=== PATIENT | male | born 1975 | race Caucasian/White ===

== ENCOUNTER 2016-09-06 14:29 | Emergency (ER) | payer MEDICARE ==
[2016-09-06 15:27] LABS: BASOPHILS 0.6 % (0-2); EOSINOPHILS 0.6 % (0-7); HEMOGLOBIN 14.1 g/dL (13.5-17.5); IMMATURE GRANULOCYTES 0.1 % (0-5); LYMPHOCYTES 20.9 % (15-50); MCH 28.8 pg (26.0-34.0); MCHC 34.4 g/dL (31.0-37.0); MCV 83.8 fL (80.0-100.0); MEAN PLATELET VOLUME 9.8 fL (7.4-10.4); MONOCYTES 6.9 % (2-11); NEUTROPHILS 70.9 % (40-80); PLATELET COUNT 245 10x3/uL (130-400); RBC 4.89 10x6/uL (4.20-6.10); RDW 12.6 % (11.5-14.5)
[2016-09-06 15:42] LABS: ALBUMIN 3.4 g/dL (3.4-5.0); ALKALINE PHOSPHATASE 65 U/L (46-116); ALT (SGPT) 32 U/L (10-68); BILIRUBIN - TOTAL 0.51 mg/dL (0.2-1.3); CALC OSMOLALITY 275 mosm/kg (275-300); CALCIUM 8.7 mg/dL (8.5-10.1); CARBON DIOXIDE 25.6 mmol/L (21.0-32.0); CHLORIDE - SERUM 104 mmol/L (98-107); CREATININE - SERUM 1.1 mg/dL (0.6-1.3); GLUCOSE 112 mg/dL (74-106); POTASSIUM - SERUM 4.2 mmol/L (3.5-5.1); PROTEIN - SERUM 6.5 g/dL (6.4-8.2); SODIUM 137 mmol/L (136-145); UREA NITROGEN 15 mg/dL (7-18); eGFR NON AFRICAN AMERICAN 79 mL/min (90-120)
[2016-09-06 15:51] LABS: CKMB 0.8 U/L (0.0-3.6); CREATINE KINASE 147 UL (21-232); PRO BNP 29 pg/mL (0-125)
[2016-09-06 15:59] LABS: TROPONIN-I < 0.017 ng/mL (0.000-0.060)
== END 2016-09-06 17:30 | disposition home or self-care (01) ==
LOC: D.ER 14:29
PROVIDERS: Emergency Medicine
DX: R07.9 Chest pain, unspecified (principal); R73.03 Prediabetes; C76.0 Malignant neoplasm of head, face and neck; I49.3 Ventricular premature depolarization

== ENCOUNTER → 2016-09-07 | Emergency (ER) | payer MEDICARE ==
[2016-09-07 13:09] LABS: BASOPHILS 0.5 % (0-2); EOSINOPHILS 0.1 % (0-7); HEMATOCRIT 43.7 % (42.0-54.0); HEMOGLOBIN 14.8 g/dL (13.5-17.5); IMMATURE GRANULOCYTES 0.1 % (0-5); LYMPHOCYTES 22.6 % (15-50); MCH 29.1 pg (26.0-34.0); MCHC 33.9 g/dL (31.0-37.0); MEAN PLATELET VOLUME 9.6 fL (7.4-10.4); MONOCYTES 8.7 % (2-11); PLATELET COUNT 249 10x3/uL (130-400); RBC 5.09 10x6/uL (4.20-6.10); RDW 12.8 % (11.5-14.5); WBC 7.5 10x3/uL (4.8-10.8)
[2016-09-07 13:11] LABS: MCV 85.9 fL (80.0-100.0)
[2016-09-07 13:54] LABS: ALBUMIN 3.2 g/dL (3.4-5.0); ALKALINE PHOSPHATASE 65 U/L (46-116); ALT (SGPT) 24 U/L (10-68); BILIRUBIN - TOTAL 0.44 mg/dL (0.2-1.3); CALC OSMOLALITY 273 mosm/kg (275-300); CALCIUM 8.7 mg/dL (8.5-10.1); CARBON DIOXIDE 22.4 mmol/L (21.0-32.0); CHLORIDE - SERUM 106 mmol/L (98-107); CKMB 0.5 U/L (0.0-3.6); CREATINE KINASE 140 UL (21-232); CREATININE - SERUM 1.1 mg/dL (0.6-1.3); GLUCOSE 105 mg/dL (74-106); POTASSIUM - SERUM 4.4 mmol/L (3.5-5.1); SODIUM 136 mmol/L (136-145); UREA NITROGEN 17 mg/dL (7-18); eGFR NON AFRICAN AMERICAN 79 mL/min (90-120)
[2016-09-07 13:55] LABS: TROPONIN-I < 0.017 ng/mL (0.000-0.060)
== END ==
LOC: D.ER 12:28
PROVIDERS: Family Medicine
DX: R07.89 Other chest pain (principal); I51.7 Cardiomegaly; C76.0 Malignant neoplasm of head, face and neck; I49.3 Ventricular premature depolarization

== ENCOUNTER 2016-09-14 15:41 | Emergency (ER) | payer MEDICARE | END 2016-09-14 18:15 | disposition home or self-care (01) | LOC: D.ER 15:41 | DX: M79.1 Myalgia (principal); N50.812 Left testicular pain; N50.811 Right testicular pain ==

== ENCOUNTER 2016-10-05 20:44 | Emergency (ER) | payer MEDICARE ==
[2016-10-05 22:31] LABS: APTT 29.6 SECONDS (22.8-39.4); INR 1.13 (0.85-1.17); PROTIME 14.4 SECONDS (11.6-15.0)
[2016-10-05 22:44] LABS: CREATINE KINASE 47 UL (21-232); TROPONIN-I < 0.017 ng/mL (0.000-0.060)
== END 2016-10-05 23:18 | disposition home or self-care (01) ==
LOC: D.ER 20:44
PROVIDERS: Physician Assistant Medical
DX: S30.1XXA Contusion of abdominal wall, initial encounter (principal); W19.XXXA Unspecified fall, initial encounter; Y93.89 Activity, other specified; Y92.89 Other specified places as the place of occurrence of the external cause; Z85.828 Personal history of other malignant neoplasm of skin; I44.0 Atrioventricular block, first degree; M54.9 Dorsalgia, unspecified; M79.1 Myalgia

== ENCOUNTER 2016-10-18 17:28 | Emergency (ER) | payer MEDICARE ==
[2016-10-18 18:37] LABS: BASOPHILS 0.3 % (0-2); EOSINOPHILS 0.7 % (0-7); HEMATOCRIT 39.7 % (42.0-54.0); HEMOGLOBIN 13.8 g/dL (13.5-17.5); IMMATURE GRANULOCYTES 0.2 % (0-5); LYMPHOCYTES 28.4 % (15-50); MCH 29.1 pg (26.0-34.0); MCHC 34.8 g/dL (31.0-37.0); MCV 83.6 fL (80.0-100.0); MEAN PLATELET VOLUME 9.6 fL (7.4-10.4); NEUTROPHILS 60.4 % (40-80); PLATELET COUNT 186 10x3/uL (130-400); RBC 4.75 10x6/uL (4.20-6.10); RDW 12.9 % (11.5-14.5); WBC 6.1 10x3/uL (4.8-10.8)
[2016-10-18 18:50] LABS: ALBUMIN 3.5 g/dL (3.4-5.0); ALKALINE PHOSPHATASE 49 U/L (46-116); ALT (SGPT) 46 U/L (10-68); CALC OSMOLALITY 274 mosm/kg (275-300); CALCIUM 8.6 mg/dL (8.5-10.1); CARBON DIOXIDE 27.1 mmol/L (21.0-32.0); CHLORIDE - SERUM 104 mmol/L (98-107); CREATININE - SERUM 1.2 mg/dL (0.6-1.3); GLUCOSE 104 mg/dL (74-106); POTASSIUM - SERUM 3.4 mmol/L (3.5-5.1); PROTEIN - SERUM 6.8 g/dL (6.4-8.2); SODIUM 138 mmol/L (136-145); UREA NITROGEN 9 mg/dL (7-18); eGFR NON AFRICAN AMERICAN 71 mL/min (90-120)
[2016-10-18 19:06] LABS: CHOL - HDL RATIO 4.1 ratio (2.3-4.9); CHOLESTEROL, TOTAL 148 mg/dL (0-200); CREATINE KINASE 54 UL (21-232); HDL CHOLESTEROL 36 mg/dL (32-96); LDL CHOLESTEROL 93 mg/dL (0-100); LDL-HDL RATIO 2.6 ratio (1.5-3.5); TRIGLYCERIDE 99 mg/dL (30-200)
[2016-10-18 19:07] LABS: TROPONIN-I < 0.017 ng/mL (0.000-0.060)
== END 2016-10-18 21:01 | disposition home or self-care (01) ==
LOC: D.ER 17:28
PROVIDERS: Emergency Medicine
DX: R07.89 Other chest pain (principal); I44.0 Atrioventricular block, first degree; R05 Cough

== ENCOUNTER 2016-10-22 20:07 | Emergency (ER) | payer MEDICARE | END 2016-10-22 22:57 | disposition home or self-care (01) | LOC: D.ER 20:07 | DX: M54.12 Radiculopathy, cervical region (principal) ==

== ENCOUNTER 2016-10-25 16:28 | Emergency (ER) | payer MEDICARE ==
[2016-10-25 17:19] LABS: BASOPHILS 0.4 % (0-2); EOSINOPHILS 0.4 % (0-7); HEMOGLOBIN 14.5 g/dL (13.5-17.5); IMMATURE GRANULOCYTES 0.1 % (0-5); LYMPHOCYTES 30.4 % (15-50); MCH 28.9 pg (26.0-34.0); MCHC 34.5 g/dL (31.0-37.0); MCV 83.8 fL (80.0-100.0); MEAN PLATELET VOLUME 10.1 fL (7.4-10.4); MONOCYTES 9.9 % (2-11); NEUTROPHILS 58.8 % (40-80); PLATELET COUNT 217 10x3/uL (130-400); RBC 5.01 10x6/uL (4.20-6.10); RDW 13.1 % (11.5-14.5); WBC 6.9 10x3/uL (4.8-10.8)
[2016-10-25 17:37] LABS: ALBUMIN 3.9 g/dL (3.4-5.0); ALKALINE PHOSPHATASE 52 U/L (46-116); ALT (SGPT) 67 U/L (10-68); BILIRUBIN - TOTAL 0.59 mg/dL (0.2-1.3); CALC OSMOLALITY 271 mosm/kg (275-300); CALCIUM 8.9 mg/dL (8.5-10.1); CARBON DIOXIDE 25.8 mmol/L (21.0-32.0); CHLORIDE - SERUM 102 mmol/L (98-107); CREATININE - SERUM 1.2 mg/dL (0.6-1.3); GLUCOSE 90 mg/dL (74-106); POTASSIUM - SERUM 3.7 mmol/L (3.5-5.1); PROTEIN - SERUM 6.8 g/dL (6.4-8.2); SODIUM 136 mmol/L (136-145); UREA NITROGEN 13 mg/dL (7-18); eGFR NON AFRICAN AMERICAN 71 mL/min (90-120)
[2016-10-25 17:48] LABS: CHOL - HDL RATIO 3.8 ratio (2.3-4.9); CHOLESTEROL, TOTAL 133 mg/dL (0-200); CREATINE KINASE 50 UL (21-232); HDL CHOLESTEROL 35 mg/dL (32-96); LDL CHOLESTEROL 82 mg/dL (0-100); LDL-HDL RATIO 2.3 ratio (1.5-3.5); TRIGLYCERIDE 81 mg/dL (30-200); TROPONIN-I < 0.017 ng/mL (0.000-0.060)
== END 2016-10-25 18:45 | disposition home or self-care (01) ==
LOC: D.ER 16:28
PROVIDERS: Emergency Medicine
DX: R07.89 Other chest pain (principal); M54.12 Radiculopathy, cervical region; I49.3 Ventricular premature depolarization; M54.2 Cervicalgia; M79.602 Pain in left arm; R20.0 Anesthesia of skin

== ENCOUNTER 2016-11-07 16:33 | Emergency (ER) | payer MEDICARE ==
[2016-11-07 20:40] LABS: APPEARANCE CLEAR (CLEAR); BILIRUBIN NEGATIVE (NEGATIVE); COLOR YELLOW (YELLOW); GLUCOSE NEGATIVE (NEGATIVE); KETONE NEGATIVE (NEGATIVE); LEUKOCYTE ESTERASE NEGATIVE (NEGATIVE); NITRITE NEGATIVE (NEGATIVE); PROTEIN NEGATIVE (NEGATIVE); SPECIFIC GRAVITY 1.015 (1.005-1.020); UROBILINOGEN NORMAL (NORMAL)
== END 2016-11-07 21:20 | disposition home or self-care (01) ==
LOC: D.ER 16:33
PROVIDERS: Emergency Medicine
DX: N45.1 Epididymitis (principal)

== ENCOUNTER 2016-11-14 09:27 | Emergency (ER) | payer MEDICARE ==
[2016-11-14 10:47] LABS: BASOPHILS 0.6 % (0-2); EOSINOPHILS 0.8 % (0-7); HEMOGLOBIN 14.1 g/dL (13.5-17.5); LYMPHOCYTES 26.6 % (15-50); MCH 29.6 pg (26.0-34.0); MCHC 34.4 g/dL (31.0-37.0); MEAN PLATELET VOLUME 9.4 fL (7.4-10.4); MONOCYTES 9.5 % (2-11); NEUTROPHILS 62.5 % (40-80); PLATELET COUNT 176 10x3/uL (130-400); RBC 4.77 10x6/uL (4.20-6.10); RDW 13.1 % (11.5-14.5); WBC 5.3 10x3/uL (4.8-10.8)
[2016-11-14 11:06] LABS: INR 1.05 (0.85-1.17); PROTIME 13.5 SECONDS (11.6-15.0)
[2016-11-14 11:11] LABS: ALBUMIN 3.5 g/dL (3.4-5.0); ALKALINE PHOSPHATASE 47 U/L (46-116); ALT (SGPT) 35 U/L (10-68); CALC OSMOLALITY 281 mosm/kg (275-300); CALCIUM 9.1 mg/dL (8.5-10.1); CARBON DIOXIDE 29.5 mmol/L (21.0-32.0); CHLORIDE - SERUM 107 mmol/L (98-107); GLUCOSE 92 mg/dL (74-106); POTASSIUM - SERUM 4.2 mmol/L (3.5-5.1); PROTEIN - SERUM 6.4 g/dL (6.4-8.2); SODIUM 141 mmol/L (136-145); UREA NITROGEN 15 mg/dL (7-18); eGFR NON AFRICAN AMERICAN 87 mL/min (90-120)
[2016-11-14 11:23] LABS: CREATINE KINASE 49 UL (21-232); PRO BNP 48 pg/mL (0-125); TROPONIN-I < 0.017 ng/mL (0.000-0.060)
== END 2016-11-14 11:47 | disposition home or self-care (01) ==
LOC: D.ER 09:27
PROVIDERS: Nurse Practitioner Family
DX: R42 Dizziness and giddiness (principal); E11.9 Type 2 diabetes mellitus without complications; I44.0 Atrioventricular block, first degree

== ENCOUNTER 2016-11-29 17:52 | Emergency (ER) | payer MEDICARE | END 2016-11-29 21:30 | disposition home or self-care (01) | LOC: D.ER 17:52 | DX: K29.00 Acute gastritis without bleeding (principal); E66.9 Obesity, unspecified; K21.9 Gastro-esophageal reflux disease without esophagitis ==

== ENCOUNTER 2017-01-06 18:23 | Emergency (ER) | payer MEDICARE | END 2017-01-06 22:41 | disposition left against medical advice (07) | LOC: D.ER 18:23 | DX: J02.9 Acute pharyngitis, unspecified (principal) ==

== ENCOUNTER 2017-01-18 16:14 | Emergency (ER) | payer MEDICARE ==
[2017-01-18 16:44] LABS: APPEARANCE CLEAR (CLEAR); BILIRUBIN NEGATIVE (NEGATIVE); COLOR YELLOW (YELLOW); GLUCOSE NEGATIVE (NEGATIVE); KETONE NEGATIVE (NEGATIVE); NITRITE NEGATIVE (NEGATIVE); PROTEIN NEGATIVE (NEGATIVE); SPECIFIC GRAVITY 1.015 (1.005-1.020); UROBILINOGEN NORMAL (NORMAL)
== END 2017-01-18 17:10 | disposition home or self-care (01) ==
LOC: D.ER 16:14
PROVIDERS: Emergency Medicine
DX: M54.5 Low back pain (principal); E11.9 Type 2 diabetes mellitus without complications; K21.9 Gastro-esophageal reflux disease without esophagitis; Z85.828 Personal history of other malignant neoplasm of skin

== ENCOUNTER 2017-02-07 23:38 | Emergency (ER) | payer MEDICARE | END 2017-02-08 01:00 | disposition home or self-care (01) | LOC: D.ER 23:38 | DX: I80.299 Phlebitis and thrombophlebitis of other deep vessels of unspecified lower extremity (principal); K21.9 Gastro-esophageal reflux disease without esophagitis; Z85.828 Personal history of other malignant neoplasm of skin ==

== ENCOUNTER 2017-09-08 11:21 | Emergency (ER) | payer MEDICARE ==
[~2017-09-08] VITALS: Ht 193 cm; Wt 163.6 kg
[2017-09-08 11:30] VITALS: Ht 193 cm; Wt 163.6 kg
[2017-09-08] MEDS ORDERED: ZESTRIL20 MG PO (11:33)
[2017-09-08] MEDS ORDERED: PROTONIX40 MG PO (11:33)
[2017-09-08] MEDS ORDERED: BUSPAR10 MG PO (11:33)
[2017-09-08] MEDS ORDERED: ELIQUIS5 MG PO (11:33)
[2017-09-08] MEDS ORDERED: FUROSEMIDE20 MG PO (11:34)
[2017-09-08] MEDS ORDERED: VIBRAMYCIN 100100 MG PO ×2 (11:34→14:27)
[2017-09-08] MEDS ORDERED: NITROSTAT0.4 MG SL (11:40)
[2017-09-08] MEDS ORDERED: GLUCOPHAGE1000 MG PO (11:40)
[2017-09-08 13:19] LABS: BASOPHILS 0.2 % (0-2); EOSINOPHILS 0.9 % (0-7); HEMATOCRIT 39.6 % (42.0-54.0); HEMOGLOBIN 13.4 g/dL (13.5-17.5); IMMATURE GRANULOCYTES 0.2 % (0-5); MCH 28.9 pg (26.0-34.0); MCHC 33.8 g/dL (31.0-37.0); MCV 85.3 fL (80.0-100.0); MEAN PLATELET VOLUME 9.5 fL (7.4-10.4); MONOCYTES 7.8 % (2-11); NEUTROPHILS 57.9 % (40-80); PLATELET COUNT 178 10x3/uL (130-400); RBC 4.64 10x6/uL (4.20-6.10); RDW 13.3 % (11.5-14.5); WBC 6.5 10x3/uL (4.8-10.8)
[2017-09-08 13:38] LABS: ALBUMIN 3.2 g/dL (3.4-5.0); ALKALINE PHOSPHATASE 55 U/L (46-116); ALT (SGPT) 32 U/L (10-68); CALC OSMOLALITY 276 mosm/kg (275-300); CALCIUM 8.5 mg/dL (8.5-10.1); CARBON DIOXIDE 29.2 mmol/L (21.0-32.0); CHLORIDE - SERUM 107 mmol/L (98-107); CREATININE - SERUM 1.2 mg/dL (0.6-1.3); GLUCOSE 83 mg/dL (74-106); POTASSIUM - SERUM 4.4 mmol/L (3.5-5.1); PROTEIN - SERUM 6.3 g/dL (6.4-8.2); SODIUM 140 mmol/L (136-145); UREA NITROGEN 9 mg/dL (7-18); eGFR NON AFRICAN AMERICAN 71 mL/min (90-120)
[2017-09-08 13:52] LABS: C-REACTIVE PROTEIN < 0.2 mg/dL (0.0-0.9); CKMB 0.4 U/L (0.0-3.6); CREATINE KINASE 83 UL (21-232); PRO BNP 68 pg/mL (0-125); THYROID STIMULATING HORMONE 1.11 uIU/mL (0.36-3.74); TROPONIN-I < 0.017 ng/mL (0.000-0.060)
[2017-09-08 14:21] LABS: ERYTHROCYTE SEDIMENTATION RATE 3 mm/hr (0-15)
[2017-09-08] MEDS ORDERED: TYLENOL W/CODEI1 TAB PO (14:27)
[2017-09-08] MEDS ORDERED: AMOXICILLI400 MG/5 M PO (14:27)
[2017-09-08 14:45] VITALS: BP 139/78
== END 2017-09-08 14:46 | disposition home or self-care (01) ==
LOC: D.ER 11:21
PROVIDERS: Family Medicine
DX: M25.50 Pain in unspecified joint (principal); A77.0 Spotted fever due to Rickettsia rickettsii; E11.9 Type 2 diabetes mellitus without complications; I10 Essential (primary) hypertension; J44.9 Chronic obstructive pulmonary disease, unspecified

== ENCOUNTER 2017-12-05 22:54 | Emergency (ER) | payer MEDICARE ==
[~2017-12-05] VITALS: Ht 193 cm; Wt 165.6 kg
[~2017-12-05 22:54] MED LIST: AMOXICILLI400 MG/5 M PO; BUSPAR10 MG PO; ELIQUIS5 MG PO; FUROSEMIDE20 MG PO; GLUCOPHAGE1000 MG PO; NITROSTAT0.4 MG SL; PROTONIX40 MG PO; TYLENOL W/CODEI1 TAB PO; VIBRAMYCIN 100100 MG PO; ZESTRIL20 MG PO
[2017-12-05 23:09] VITALS: Ht 193 cm; Wt 165.6 kg
[2017-12-05 23:59] LABS: BASOPHILS 0.3 % (0-2); EOSINOPHILS 1.4 % (0-7); HEMATOCRIT 40.7 % (42.0-54.0); IMMATURE GRANULOCYTES 0.1 % (0-5); LYMPHOCYTES 32.2 % (15-50); MCH 29.2 pg (26.0-34.0); MCHC 34.4 g/dL (31.0-37.0); MEAN PLATELET VOLUME 9.3 fL (7.4-10.4); MONOCYTES 8.6 % (2-11); NEUTROPHILS 57.4 % (40-80); RBC 4.79 10x6/uL (4.20-6.10); RDW 12.6 % (11.5-14.5); WBC 8.7 10x3/uL (4.8-10.8)
[2017-12-06 00:04] LABS: INR 1.06 (0.85-1.17); PROTIME 13.4 SECONDS (11.6-15.0)
[2017-12-06 00:05] LABS: PLATELET COUNT 237 10x3/uL (130-400)
[2017-12-06 00:06] LABS: D-DIMER-QUANTITATIVE < 0.27 ug/mLFEU (0.20-0.54)
[2017-12-06 00:12] LABS: ALBUMIN 3.3 g/dL (3.4-5.0); ALKALINE PHOSPHATASE 49 U/L (46-116); ALT (SGPT) 43 U/L (10-68); BILIRUBIN - TOTAL 0.36 mg/dL (0.2-1.3); CALC OSMOLALITY 269 mosm/kg (275-300); CALCIUM 8.5 mg/dL (8.5-10.1); CARBON DIOXIDE 27.5 mmol/L (21.0-32.0); CHLORIDE - SERUM 104 mmol/L (98-107); CREATININE - SERUM 1.1 mg/dL (0.6-1.3); GLUCOSE 86 mg/dL (74-106); POTASSIUM - SERUM 4.2 mmol/L (3.5-5.1); PROTEIN - SERUM 6.7 g/dL (6.4-8.2); SODIUM 136 mmol/L (136-145); UREA NITROGEN 10 mg/dL (7-18); eGFR NON AFRICAN AMERICAN 78 mL/min (90-120)
[2017-12-06 00:19] LABS: CKMB 0.4 U/L (0.0-3.6)
[2017-12-06 00:20] LABS: TROPONIN-I < 0.017 ng/mL (0.000-0.060)
[2017-12-06 00:38] LABS: MAGNESIUM - SERUM 1.9 mg/dL (1.8-2.4); PRO BNP 19 pg/mL (0-125)
[2017-12-06] MEDS ORDERED: ACETAMINOPHEN500 M1 PO (04:50)
[2017-12-06] MEDS ORDERED: CYCLOBENZAPRINE10 MG PO (04:50)
[2017-12-06 04:59] VITALS: BP 126/85
== END 2017-12-06 04:59 | disposition home or self-care (01) ==
LOC: D.ER 22:54
PROVIDERS: Family Medicine
DX: R07.9 Chest pain, unspecified (principal); Z86.711 Personal history of pulmonary embolism; J44.9 Chronic obstructive pulmonary disease, unspecified

== ENCOUNTER 2018-01-09 14:05 | Emergency (ER) | payer MEDICARE ==
[~2018-01-09] VITALS: Ht 193 cm; Wt 163.6 kg
[~2018-01-09 14:05] MED LIST changes: +ACETAMINOPHEN500 M1 PO; +CYCLOBENZAPRINE10 MG PO
[2018-01-09 14:17] VITALS: Ht 193 cm; Wt 163.6 kg
[2018-01-09 14:44] LABS: BASOPHILS 0.5 % (0-2); HEMATOCRIT 42.3 % (42.0-54.0); HEMOGLOBIN 14.7 g/dL (13.5-17.5); IMMATURE GRANULOCYTES 0.2 % (0-5); LYMPHOCYTES 33.3 % (15-50); MCH 29.3 pg (26.0-34.0); MCHC 34.8 g/dL (31.0-37.0); MCV 84.3 fL (80.0-100.0); MEAN PLATELET VOLUME 9.4 fL (7.4-10.4); MONOCYTES 11.3 % (2-11); NEUTROPHILS 53.7 % (40-80); RBC 5.02 10x6/uL (4.20-6.10); RDW 12.9 % (11.5-14.5); WBC 5.7 10x3/uL (4.8-10.8)
[2018-01-09 14:46] LABS: PLATELET COUNT 188 10x3/uL (130-400)
[2018-01-09 14:57] LABS: KETONE - SERUM NEGATIVE (NEGATIVE)
[2018-01-09 15:00] LABS: ALBUMIN 3.5 g/dL (3.4-5.0); ALKALINE PHOSPHATASE 74 U/L (46-116); ALT (SGPT) 44 U/L (10-68); BILIRUBIN - TOTAL 0.22 mg/dL (0.2-1.3); CALC OSMOLALITY 278 mosm/kg (275-300); CALCIUM 8.7 mg/dL (8.5-10.1); CARBON DIOXIDE 25.7 mmol/L (21.0-32.0); CHLORIDE - SERUM 106 mmol/L (98-107); CREATININE - SERUM 1.1 mg/dL (0.6-1.3); GLUCOSE 94 mg/dL (74-106); POTASSIUM - SERUM 4.1 mmol/L (3.5-5.1); PROTEIN - SERUM 7.2 g/dL (6.4-8.2); SODIUM 140 mmol/L (136-145); UREA NITROGEN 13 mg/dL (7-18); eGFR NON AFRICAN AMERICAN 78 mL/min (90-120)
[2018-01-09 15:01] LABS: APTT 23.8 SECONDS (22.8-39.4); INR 1.02 (0.85-1.17)
[2018-01-09 15:11] LABS: CKMB 0.8 U/L (0.0-3.6); CREATINE KINASE 91 UL (21-232); MAGNESIUM - SERUM 2.1 mg/dL (1.8-2.4); TROPONIN-I < 0.017 ng/mL (0.000-0.060)
[2018-01-09 15:12] LABS: THYROID STIMULATING HORMONE 1.51 uIU/mL (0.36-3.74)
[2018-01-09 15:21] LABS: APPEARANCE CLEAR (CLEAR); BILIRUBIN NEGATIVE (NEGATIVE); COLOR YELLOW (YELLOW); GLUCOSE NEGATIVE (NEGATIVE); KETONE NEGATIVE (NEGATIVE); NITRITE NEGATIVE (NEGATIVE); PROTEIN NEGATIVE (NEGATIVE); UROBILINOGEN NORMAL (NORMAL)
[2018-01-09 16:08] VITALS: BP 119/75
== END 2018-01-09 16:18 | disposition home or self-care (01) ==
LOC: D.ER 14:05
PROVIDERS: Emergency Medicine
DX: E11.649 Type 2 diabetes mellitus with hypoglycemia without coma (principal); M54.2 Cervicalgia; M54.5 Low back pain; R10.9 Unspecified abdominal pain; J44.9 Chronic obstructive pulmonary disease, unspecified

== ENCOUNTER 2018-10-03 19:15 | Emergency (ER) | payer MEDICARE ==
[~2018-10-03] VITALS: Ht 193 cm; Wt 176.7 kg
[2018-10-03 19:23] VITALS: Ht 193 cm; Wt 176.7 kg
[2018-10-03] MEDS ORDERED: HYDROCODONE-A1 UDTA2 PO (19:25)
[2018-10-03] MEDS ORDERED: PEPCID40 MG PO (19:26)
[2018-10-03 19:51] LABS: APPEARANCE CLEAR (CLEAR); BILIRUBIN NEGATIVE (NEGATIVE); COLOR YELLOW (YELLOW); GLUCOSE NEGATIVE (NEGATIVE); KETONE NEGATIVE (NEGATIVE); NITRITE NEGATIVE (NEGATIVE); PROTEIN NEGATIVE (NEGATIVE); SPECIFIC GRAVITY 1.015 (1.005-1.020); UROBILINOGEN NORMAL (NORMAL)
[2018-10-03 19:53] LABS: BASOPHILS 0.4 % (0-2); EOSINOPHILS 0.7 % (0-7); HEMATOCRIT 43.7 % (42.0-54.0); HEMOGLOBIN 15.1 g/dL (13.5-17.5); IMMATURE GRANULOCYTES 0.1 % (0-5); LYMPHOCYTES 38.4 % (15-50); MCHC 34.6 g/dL (31.0-37.0); MCV 83.9 fL (80.0-100.0); MEAN PLATELET VOLUME 9.4 fL (7.4-10.4); MONOCYTES 8.3 % (2-11); NEUTROPHILS 52.1 % (40-80); PLATELET COUNT 222 10x3/uL (130-400); RBC 5.21 10x6/uL (4.20-6.10); RDW 12.8 % (11.5-14.5); WBC 8.2 10x3/uL (4.8-10.8)
[2018-10-03 20:27] LABS: ALBUMIN 3.6 g/dL (3.4-5.0); ALKALINE PHOSPHATASE 80 U/L (46-116); ALT (SGPT) 46 U/L (10-68); BILIRUBIN - TOTAL 0.39 mg/dL (0.2-1.3); CALC OSMOLALITY 271 mosm/kg (275-300); CALCIUM 8.8 mg/dL (8.5-10.1); CARBON DIOXIDE 23.5 mmol/L (21.0-32.0); CHLORIDE - SERUM 103 mmol/L (98-107); GLUCOSE 107 mg/dL (74-106); POTASSIUM - SERUM 3.8 mmol/L (3.5-5.1); SODIUM 137 mmol/L (136-145); UREA NITROGEN 8 mg/dL (7-18); eGFR NON AFRICAN AMERICAN 87 mL/min (90-120)
[2018-10-03 21:45] VITALS: BP 128/70
== END 2018-10-03 21:45 | disposition home or self-care (01) ==
LOC: D.ER 19:15
PROVIDERS: Family Medicine
DX: R10.9 Unspecified abdominal pain (principal); R30.0 Dysuria; I10 Essential (primary) hypertension; J44.9 Chronic obstructive pulmonary disease, unspecified

== ENCOUNTER 2018-11-28 19:24 | Emergency (ER) | payer MEDICARE ==
[2018-10-03 19:23] VITALS: Ht 193 cm; Wt 168.2 kg
[~2018-11-28] VITALS: Ht 193 cm; Wt 168.2 kg
[~2018-11-28 19:24] MED LIST changes: +HYDROCODONE-A1 UDTA2 PO; +PEPCID40 MG PO
[2018-11-28] MEDS ORDERED: AMBIEN10 MG PO (19:30)
[2018-11-28 19:44] LABS: BASOPHILS 0.3 % (0-2); EOSINOPHILS 0.8 % (0-7); HEMATOCRIT 42.1 % (42.0-54.0); HEMOGLOBIN 14.7 g/dL (13.5-17.5); IMMATURE GRANULOCYTES 0.1 % (0-5); LYMPHOCYTES 31.1 % (15-50); MCH 29.4 pg (26.0-34.0); MCHC 34.9 g/dL (31.0-37.0); MCV 84.2 fL (80.0-100.0); MEAN PLATELET VOLUME 9.4 fL (7.4-10.4); MONOCYTES 10.4 % (2-11); NEUTROPHILS 57.3 % (40-80); PLATELET COUNT 227 10x3/uL (130-400); RDW 12.9 % (11.5-14.5); WBC 8.8 10x3/uL (4.8-10.8)
[2018-11-28 19:54] LABS: APTT 27.4 SECONDS (22.8-39.4); INR 1.07 (0.85-1.17); PROTIME 13.4 SECONDS (11.6-15.0)
[2018-11-28 19:55] LABS: D-DIMER-QUANTITATIVE 0.44 ug/mLFEU (0.20-0.54)
[2018-11-28 19:58] LABS: ALBUMIN 3.4 g/dL (3.4-5.0); ALKALINE PHOSPHATASE 82 U/L (46-116); ALT (SGPT) 36 U/L (10-68); BILIRUBIN - TOTAL 0.58 mg/dL (0.2-1.3); CALC OSMOLALITY 274 mosm/kg (275-300); CALCIUM 8.6 mg/dL (8.5-10.1); CHLORIDE - SERUM 103 mmol/L (98-107); CREATININE - SERUM 1.1 mg/dL (0.6-1.3); GLUCOSE 98 mg/dL (74-106); POTASSIUM - SERUM 4.2 mmol/L (3.5-5.1); PROTEIN - SERUM 7.1 g/dL (6.4-8.2); SODIUM 138 mmol/L (136-145); UREA NITROGEN 9 mg/dL (7-18); eGFR NON AFRICAN AMERICAN 78 mL/min (90-120)
[2018-11-28 20:10] LABS: CREATINE KINASE 876 UL (21-232); TROPONIN-I < 0.017 ng/mL (0.000-0.060)
[2018-11-28 22:30] VITALS: BP 132/84
== END 2018-11-28 22:30 | disposition home or self-care (01) ==
LOC: D.ER 19:24
PROVIDERS: Emergency Medicine
DX: M79.604 Pain in right leg (principal); M79.605 Pain in left leg

== ENCOUNTER 2019-02-26 14:01 | Emergency (ER) | payer MEDICARE ==
[~2019-02-26] VITALS: Ht 193 cm; Wt 170.5 kg
[~2019-02-26 14:01] MED LIST changes: +AMBIEN10 MG PO
[2019-02-26 14:10] VITALS: Ht 193 cm; Wt 170.5 kg
[2019-02-26 14:42] LABS: BASOPHILS 0.4 % (0-2); EOSINOPHILS 0.5 % (0-7); HEMOGLOBIN 14.9 g/dL (13.5-17.5); IMMATURE GRANULOCYTES 0.1 % (0-5); LYMPHOCYTES 35.2 % (15-50); MCHC 33.9 g/dL (31.0-37.0); MCV 85.6 fL (80.0-100.0); MEAN PLATELET VOLUME 9.2 fL (7.4-10.4); MONOCYTES 6.9 % (2-11); NEUTROPHILS 56.9 % (40-80); PLATELET COUNT 269 10x3/uL (130-400); RBC 5.14 10x6/uL (4.20-6.10); RDW 12.5 % (11.5-14.5); WBC 7.4 10x3/uL (4.8-10.8)
[2019-02-26 14:52] LABS: APTT 28.9 SECONDS (22.8-39.4); INR 1.09 (0.85-1.17); PROTIME 13.6 SECONDS (11.6-15.0)
[2019-02-26 15:02] LABS: CALC OSMOLALITY 274 mosm/kg (275-300); CALCIUM 8.9 mg/dL (8.5-10.1); CARBON DIOXIDE 25.7 mmol/L (21.0-32.0); CHLORIDE - SERUM 102 mmol/L (98-107); CREATININE - SERUM 1.1 mg/dL (0.6-1.3); GLUCOSE 106 mg/dL (74-106); SODIUM 138 mmol/L (136-145); UREA NITROGEN 11 mg/dL (7-18); eGFR NON AFRICAN AMERICAN 78 mL/min (90-120)
[2019-02-26 15:18] LABS: ALBUMIN 3.5 g/dL (3.4-5.0); ALKALINE PHOSPHATASE 73 U/L (46-116); ALT (SGPT) 62 U/L (10-68); BILIRUBIN - TOTAL 0.45 mg/dL (0.2-1.3); CKMB 0.4 U/L (0.0-3.6); CREATINE KINASE 92 UL (21-232); PRO BNP 12 pg/mL (0-125); PROTEIN - SERUM 7.4 g/dL (6.4-8.2)
[2019-02-26 15:22] LABS: TROPONIN-I < 0.017 ng/mL (0.000-0.060)
[2019-02-26] MEDS ORDERED: ZPAK PO (15:45)
[2019-02-26] MEDS ORDERED: MEDROL DOSE PACK4 MG PO (15:45)
[2019-02-26] MEDS ORDERED: ALBUTEROL SULF8.5 GM INH (15:47)
[2019-02-26 17:04] VITALS: BP 143/78
== END 2019-02-26 17:04 | disposition home or self-care (01) ==
LOC: D.ER 14:01
PROVIDERS: Family Medicine
DX: R06.02 Shortness of breath (principal); J20.9 Acute bronchitis, unspecified; I10 Essential (primary) hypertension; I20.9 Angina pectoris, unspecified; J44.9 Chronic obstructive pulmonary disease, unspecified; R73.03 Prediabetes

== ENCOUNTER 2019-04-03 10:12 | Emergency (ER) | payer MEDICARE ==
[~2019-04-03] VITALS: Ht 193 cm; Wt 163.6 kg
[~2019-04-03 10:12] MED LIST changes: +ALBUTEROL SULF8.5 GM INH; +MEDROL DOSE PACK4 MG PO; +ZPAK PO
[2019-04-03 10:16] VITALS: Ht 193 cm; Wt 163.6 kg
[2019-04-03 10:40] LABS: BASOPHILS 0.5 % (0-2); EOSINOPHILS 0.5 % (0-7); HEMATOCRIT 43.1 % (42.0-54.0); HEMOGLOBIN 14.4 g/dL (13.5-17.5); IMMATURE GRANULOCYTES 0.2 % (0-5); MCH 28.7 pg (26.0-34.0); MCHC 33.4 g/dL (31.0-37.0); MEAN PLATELET VOLUME 9.2 fL (7.4-10.4); MONOCYTES 4.5 % (2-11); NEUTROPHILS 62.3 % (40-80); RBC 5.01 10x6/uL (4.20-6.10); RDW 12.9 % (11.5-14.5); WBC 5.7 10x3/uL (4.8-10.8)
[2019-04-03 10:44] LABS: PLATELET COUNT 206 10x3/uL (130-400)
[2019-04-03 10:47] LABS: APPEARANCE CLEAR (CLEAR); BILIRUBIN NEGATIVE (NEGATIVE); COLOR YELLOW (YELLOW); GLUCOSE NEGATIVE (NEGATIVE); KETONE NEGATIVE (NEGATIVE); NITRITE NEGATIVE (NEGATIVE); PROTEIN NEGATIVE (NEGATIVE)
[2019-04-03 10:57] LABS: CALC OSMOLALITY 275 mosm/kg (275-300); CALCIUM 8.4 mg/dL (8.5-10.1); CHLORIDE - SERUM 104 mmol/L (98-107); CREATININE - SERUM 1.2 mg/dL (0.6-1.3); GLUCOSE 134 mg/dL (74-106); POTASSIUM - SERUM 3.7 mmol/L (3.5-5.1); SODIUM 138 mmol/L (136-145); UREA NITROGEN 8 mg/dL (7-18); eGFR NON AFRICAN AMERICAN 70 mL/min (90-120)
[2019-04-03 10:58] LABS: APTT 36.9 SECONDS (22.8-39.4); INR 1.18 (0.85-1.17); PROTIME 14.9 SECONDS (11.6-15.0)
[2019-04-03 11:14] LABS: ALBUMIN 3.3 g/dL (3.4-5.0); ALKALINE PHOSPHATASE 80 U/L (30-120); ALT (SGPT) 54 U/L (10-68); BILIRUBIN - TOTAL 0.38 mg/dL (0.2-1.3); CKMB 0.3 U/L (0.0-3.6); CREATINE KINASE 68 UL (21-232); PROTEIN - SERUM 6.8 g/dL (6.4-8.2)
[2019-04-03 11:18] LABS: TROPONIN-I < 0.017 ng/mL (0.000-0.060)
[2019-04-03 11:48] VITALS: BP 137/83
[2019-04-03] MEDS ORDERED: PROTONIX40 MG PO (12:03)
== END 2019-04-03 12:41 | disposition home or self-care (01) ==
LOC: D.ER 10:12
PROVIDERS: Family Medicine
DX: R10.13 Epigastric pain (principal); R73.9 Hyperglycemia, unspecified; E88.09 Other disorders of plasma-protein metabolism, not elsewhere classified; I10 Essential (primary) hypertension; I20.9 Angina pectoris, unspecified; R73.03 Prediabetes; J44.9 Chronic obstructive pulmonary disease, unspecified; Z86.711 Personal history of pulmonary embolism; Z79.84 Long term (current) use of oral hypoglycemic drugs; S02.5XXA Fracture of tooth (traumatic), initial encounter for closed fracture; K02.9 Dental caries, unspecified

== ENCOUNTER → 2019-07-21 13:00 | Outpatient (CLI) | payer MEDICARE ==
[~2019-07-21 13:00] MED LIST changes: +ZOFRAN ODT4 MG/UDTAB PO
== END | disposition home or self-care (01) ==
LOC: D.LAB 12:45 → D.RT 13:00 → D.LAB 13:00
PROVIDERS: ATTEND Internal Medicine Pulmonary Disease
DX: J44.9 Chronic obstructive pulmonary disease, unspecified (principal)

== ENCOUNTER → 2019-10-27 16:27 | Outpatient (CLI) | payer MEDICARE | END | disposition home or self-care (01) | LOC: D.LAB 16:27 | PROVIDERS: ATTEND Internal Medicine Pulmonary Disease | DX: J45.909 Unspecified asthma, uncomplicated (principal) ==

== ENCOUNTER → 2019-11-01 20:29 | Outpatient (CLI) | payer MEDICARE | END | disposition home or self-care (01) | LOC: D.LABREF 20:29 | PROVIDERS: ATTEND Internal Medicine Pulmonary Disease | DX: J45.909 Unspecified asthma, uncomplicated (principal) ==